=== PATIENT | female | born 1975 | race Caucasian/White ===

== ENCOUNTER 2022-10-02 19:05 | Emergency (ER) | payer SELFPAY ==
[2022-10-02] VITALS (15 sets, daily range): BP systolic 114–136; BP diastolic 62–95; PULSE 90–107; RESP 12–21; O2SAT 92–100
--- NOTE | ~2022-10-02 | CT_ITS ---
EXAMINATION: CT brain wo con DATE: 10/02/2022 21:14 INDICATION: confusion, recent stroke . TECHNIQUE: Computed tomography (CT) of the head was performed without intravenous contrast. The mA wa s adjusted according to patient size. Iterative reconstruction technique was employed. The dose-lengt h product was 832.33 mGy-cm. COMPARISON: None FINDINGS: Mild motion artifact which required repeat imaging. No acute intracranial hemorrhage or extra-axial fluid collection. No hydrocephalus, mass, or herniation. No acute ischemic infarct. Unremarkable dural venous sinus attenuation. No acute osseous abnormality. The aerated spaces are clear. IMPRESSION: No acute intracranial process. Reviewed, dictated and finalized at location K. PATIAL INFORMATION TECHNOLOGIST
--- NOTE | 2022-10-02 19:48 | ECG_ITS ---
Measurements Intervals [place] Rate: 105 P: 78 HI: 177 QRS: -13 QRSD: 154 T: 98 QT: 394 QTc: 523 Interpretive Statements SINUS TACHYCARDIA LEFT BUNDLE BRANCH BLOCK ABNORMAL ECG NO PREVIOUS ECG AVAILABLE FOR COMPARISON Electronically Signed On 10-02-2022 22:10:01 PALEOLOGY TEACHER by Javier Osorio D.O.
--- NOTE | 2022-10-02 19:50 | ED.AMS ---
HPI - Altered Mental Status General Chief Complaint: Altered Mental Status Stated Complaint: GLF, ETOH, STROKE SYMPTOMS, COMBATIVE Time Seen by Provider: 10/02/22 19:42 History of Present Illness HPI narrative: Patient is a 47-year-old female with a history of recent stroke with residual left-sided deficits presenting with slurred speech and altered mental status. Patient's says her last known normal was approximately 8 hours ago. States that they went to their grandma's birthday and he thinks she may have had a cocktail while there. States that she had some slurred speech at this time. They went to a bar and the patient had an unknown number of beverages while there. She continued to have slurred speech and became very emotional and combative. She then fell off a barstool so he called 911. On arrival, patient is awake but intermittently crying. Answering some questions appropriately. States that she has a headache. Denies any recent symptoms such as fevers or chills, new numbness or weakness, chest pain, shortness of breath, cough, abdominal pain, nausea or vomiting, leg swelling. Related Data Allergies Allergy/AdvReac Type Severity Reaction Status Date / Time butorphanol [From Stadol] Allergy Unknown Verified 10/02/22 19:59 hydromorphone Allergy Anaphylaxis Verified 10/02/22 20:04 morphine Allergy Unknown Verified 10/02/22 19:59 phenytoin [From Dilantin] Allergy Rash Verified 10/02/22 19:59 Review of Systems Review of Systems: All systems reviewed & are unremarkable except as noted in HPI and below Exam Narrative: GENERAL: Slightly disheveled, intermittently crying HEAD: Normocephalic, atraumatic. EYES: PERRLA and EOMI. ENT: Nares clear, no rhinorrhea or epistaxis. Mucous membranes moist. NECK: Supple. CHEST: Clear to auscultation. No respiratory distress. HEART: Regular rate and rhythm. No murmur heard. Normal peripheral pulses. ABDOMEN: Soft, nontender, nondistended, normal active bowel sounds. EXTREMITIES: Normal range of motion. No edema. SKIN: Warm, dry, no rash. NEURO: 5 out of 5 strength in right extremities,3/5 strength left extremities states this is unchanged, slurred speech. PSYCH: Tearful Course Vital Signs Vital signs: Vital Signs Pulse Rate 95 10/02/22 19:42 Respiratory Rate 15 10/02/22 19:42 Blood Pressure 136/73 10/02/22 19:42 Pulse Oximetry 100 10/02/22 19:42 Oxygen Delivery Room Air 10/02/22 19:42 Pulse Rate 94 10/03/22 01:10 Respiratory Rate 16 10/03/22 01:10 Blood Pressure 134/83 10/03/22 01:10 Pulse Oximetry 97 10/03/22 01:10 Oxygen Delivery Room Air 10/02/22 19:42 MDM - Altered Mental Status MDM Narrative Medical decision making narrative: Patient is a 47-year-old female presenting with altered mental status. Patient slightly tachycardic, otherwise vitals are within normal limits. Exam is remarkable for the above. Blood work is concerning for dehydration. Fluids are ongoing. Ethanol level is 260. CT head shows no acute abnormalities. Patient observed for 6 hours and she is now awake and oriented x4. She states that she just has a slight headache. Her speech is now normal. Her states that he feels she is back to baseline. Patient was able to ambulate without difficulty. Advised that she abstain from alcohol and follow-up with her PCP. Appropriate return precautions given. Patient and her voiced understanding and are agreeable with plan. Discharged in stable condition. Lab Data Result diagrams: 10/02/22 20:07 10/02/22 20:08 Labs: Lab Results 10/02/22 10/02/22 10/02/22 Range/Units 20:07 20:07 20:07 WBC 8.4 (4.5-10.0) K/mm3 RBC 4.72 (4.2-5.4) M/mm3 Hgb 14.9 (12.0-15.0) g/dL Hct 45.7 (37.0-47.0) % MCV 96.8 (80-100) fl MCH 31.6 (26-34) pg MCHC 32.6 (32-36) g/dl RDW 13.0 (11.5-14.5) % Plt Count 292 (150-375) k/mm3 MPV 12.5
[2022-10-02] MEDS: Please add drug allergy info to patient profile. 1 EACH XX (20:00)
[2022-10-02] MEDS: LORazepam INJ (*CRX) 2 MG/ML VIAL 0.5 MG IV PUSH (20:04)
[2022-10-02 20:15] LABS: Basophils Percent Auto 0.5 % (0.2-1.2); Eosinophils Absolute Auto 0.2 K/mm3 (0-0.3); Eosinophils Percent Auto 1.8 % (0-4.4); Hematocrit 45.7 % (37.0-47.0); Hemoglobin 14.9 g/dL (12.0-15.0); Immature Granulocyte Absolute 0.04 K/mm3 (0.00-0.031); Immature Granulocyte Percent A 0.5 % (0-0.5); Lymphocytes Absolute Auto 2.46 K/mm3 (0.9-3.2); Lymphocytes Percent Auto 29.3 % (18.3-44.2); Mean Corpuscular HGB Conc 32.6 g/dl (32-36); Mean Corpuscular Hemoglobin 31.6 pg (26-34); Mean Corpuscular Volume 96.8 fl (80-100); Mean Platelet Volume 12.5 fl (7.4-10.4); Monocytes Absolute Auto 0.4 K/mm3 (0.1-0.6); Monocytes Percent Auto 4.2 % (2.6-8.5); Neutrophils Absolute Auto 5.4 K/mm3 (1.3-6.7); Neutrophils Percent Auto 63.7 % (45.5-73.1); Platelet Count Result 292 k/mm3 (150-375); Red Blood Count 4.72 M/mm3 (4.2-5.4); White Blood Count 8.4 K/mm3 (4.5-10.0)
[2022-10-02 20:17] LABS: Appearance Urine Clear (Clear); Bilirubin Urine Negative (Negative); Blood Urine Negative (Negative); Color Urine Light Yellow (Yellow); Glucose Urine UA Negative (Negative); Ketones Urine Negative (Negative); Leukocyte Esterase Ur Negative LEU/UL (Negative); Nitrate Urine Negative (Negative); Protein Urine Negative (Negative); Specific Grav Ur <= 1.005 (1.001-1.035); Urobilinogen Urine 0.2 mg/dL (<2.0); pH Urine 5.5 (5.0-9.0)
[2022-10-02 20:20] LABS: Mucus Urine Rare /lpf; WBC Urine 0-3 /hpf
[2022-10-02 20:22] LABS: Add Urine Microscopic? NO
[2022-10-02 20:26] LABS: Alanine Aminotransferase 27 U/L (6-35); Albumin Level 4.7 g/dL (3.5-5.1); Alkaline Phosphatase 64 U/L (38-126); Anion Gap 14 mmol/L (8-16); Aspartate Amino Transferase 32 U/L (14-36); Bilirubin,Total 0.3 mg/dL (0.2-1.3); Blood Urea Nitrogen 19 mg/dL (7-17); Calcium 8.7 mg/dL (8.4-10.2); Carbon Dioxide 24 mmol/L (22-30); Chloride 110 mmol/L (98-107); Estimated CRCL calculation 72 ml/min; Estimated Glomerular Filt Rate 53; Glucose 85 mg/dL (65-110); Potassium 4.2 mmol/L (3.4-5.0); Sodium 148 mmol/L (137-145)
[2022-10-02 20:27] LABS: Ethanol 260 mg/dL (<10)
[2022-10-02 20:36] LABS: Amphetamine Screen Urine Negative (Negative); Barbiturate Screen Urine Negative (Negative); Benzodiazepines Screen Urine Negative (Negative); Cannabinoid Screen Urine Negative (Negative); Cocaine Screen Urine Negative (Negative); Methadone Screen Urine Negative (Negative); Opiate Screen Urine Negative (Negative); Phencyclidine Screen Urine Negative (Negative)
[2022-10-02] MEDS: SODIUM CHLORIDE 0.9% IV 1,000 ML 999 ML IV CONT (21:16)
[2022-10-03] VITALS (8 sets, daily range): BP systolic 116–134; BP diastolic 64–83; PULSE 80–105; RESP 16–27; O2SAT 97–100
[2022-10-03] MEDS: NAPROXEN 500 MG TABLET PO (01:17)
== END 2022-10-03 01:10 | disposition home or self-care (01) ==
PROVIDERS: Emergency Provider Emergency Medicine
DX: F10.129 Alcohol abuse with intoxication, unspecified (principal); I69.354 Hemiplegia and hemiparesis following cerebral infarction affecting left non-dominant side; Y90.8 Blood alcohol level of 240 mg/100 ml or more; R00.0 Tachycardia, unspecified; I44.7 Left bundle-branch block, unspecified
CPT/HCPCS: 36415; 51702; 70450; 80053; 80307; 81003; 85025; 93005; 96365; 96375; 99284; A9270; J0131; J2060; J7030